=== PATIENT | female | born 1990 | race Caucasian/White ===

== ENCOUNTER 2017-03-21 21:57 | Outpatient (CLI) | payer MEDICAID ==
[~2017-03-21] VITALS: Ht 165.1 cm; Wt 61.5 kg
[~2017-03-21 21:57] MED LIST: ACHYD1T PO; BCP PO; CLC500CT PO; CPR500T PO; DCS100C PO; HYDR-3720 PO; HYDR1CAP2 PO; IBP800T PO; PREN1TAB19 PO; PREN1TAB39 PO
[2017-03-21 22:13] VITALS: BP 119/69
--- NOTE | 2017-03-22 13:02 | Physician Query-Final Dx ---
APARNA CEDILLO 03/22/17 1302: Clinic Account Progress/Dx Physician Query: Please give diagnosis Date of Service Mar 21, 2017 at 21:57 MAE READ MD 03/23/17 0717: Clinic Account Progress/Dx DIAGNOSIS: Diagnosis false labor APARNA CEDILLO Mar 22, 2017 13:02 MAE READ MD Mar 23, 2017 07:17
== END 2017-03-21 22:46 | disposition home or self-care (01) ==
LOC: LDRP 21:57 → WSo 21:57
PROVIDERS: ATTEND Obstetrics & Gynecology
DX: O47.02 False labor before 37 completed weeks of gestation, second trimester (principal); Z3A.23 23 weeks gestation of pregnancy
CPT/HCPCS: 99213

== ENCOUNTER 2017-06-10 16:01 | Outpatient (CLI) | payer MEDICAID ==
[~2017-06-10] VITALS: Ht 165.1 cm; Wt 69.2 kg
[2017-06-10 16:15] VITALS: BP 129/79
[2017-06-10 16:38] LABS: BILIRUBIN,URINE NEGATIVE (NEGATIVE); KETONES,URINE NEGATIVE (NEGATIVE); LEUKOCYTE ESTERASE ,URINE NEGATIVE (NEGATIVE); NITRITE,URINE NEGATIVE (NEGATIVE); PH,URINE 7 (5-9); PROTEIN,URINE NEGATIVE (NEGATIVE); UROBILINOGEN,URINE NORMAL (NORMAL)
[2017-06-10 16:49] LABS: SQUAMOUS EPITHELIAL CELL,UR 0-2 /HPF
--- NOTE | 2017-06-11 08:06 | Physician Query-Final Dx ---
NIKOLE RAZO 06/11/17 0806: Clinic Account Progress/Dx Physician Query: Please give diagnosis Date of Service Jun 10, 2017 at 16:01 MAE READ MD 06/14/17 0903: Clinic Account Progress/Dx DIAGNOSIS: Diagnosis false labor NIKOLE RAZO Jun 11, 2017 08:06 MAE READ MD Jun 14, 2017 09:03
== END 2017-06-10 17:50 | disposition home or self-care (01) ==
LOC: LDRP 16:01 → WSo 16:01
PROVIDERS: ATTEND Obstetrics & Gynecology
DX: O47.03 False labor before 37 completed weeks of gestation, third trimester (principal); Z3A.34 34 weeks gestation of pregnancy
CPT/HCPCS: 81000; 99214

== ENCOUNTER 2017-06-25 23:37 | Inpatient (IN) | payer MEDICAID ==
[~2017-06-25] VITALS: Ht 165.1 cm; Wt 70.8 kg
[2017-06-25 23:50] VITALS: BP 126/79
[2017-06-26] VITALS (34 sets, daily range): BP systolic 104–125; BP diastolic 54–81
[2017-06-26] MEDS: D5 LR IV SOLUTION 1,000 ML IV SCH ×2 (01:02→07:43)
[2017-06-26] MEDS ORDERED: D5 LR IV SOLUTION 1,000 ML IV SCH (02:08)
--- OUTSIDE RECORDS SUMMARY | 2017-06-26 02:16 | XMS REPORT ---
Author ABEL Cruz [facility] [place] eClinicalWorks Address Unknown Phone Unavailable Care Team Providers Care Patient Services Assistant Name Role Phone ABEL CHOWDHURY CP Unavailable Allergies No Known Allergies Problems Problem Type Condition ICD-9 Code Onset Dates Condition Status Assessment Screening for tuberculosis V74.1 Active Medications No Known Medications Procedures Procedure Coding System Code Date TB INTRADERMAL TEST CPT-4 30551 Jun 07, 2015 Results No Known Results Summary Purpose eClinicalWorks Submission
[2017-06-26 02:19] LABS: BASOPHILS % (AUTO) 0 % (0-10); EOSINOPHILS # (AUTO) 0.1 10^3/uL (0.0-0.3); EOSINOPHILS % (AUTO) 2 % (0-10); LYMPHOCYTES # (AUTO) 2.2 X 10^3 (1.0-4.0); LYMPHOCYTES % (AUTO) 24 % (12-44); MEAN CORPUSCULAR HEMOGLOBIN 28 PG (25-34); MEAN CORPUSCULAR HGB CONC 34 G/DL (32-36); MEAN CORPUSCULAR VOLUME 83 FL (80-99); MEAN PLATELET VOLUME 10.3 FL (7.4-10.4); MONOCYTES # (AUTO) 0.7 X 10^3 (0.0-1.0); MONOCYTES % (AUTO) 7 % (0-12); NEUTROPHILS # (AUTO) 6.2 X 10^3 (1.8-7.8); NEUTROPHILS % (AUTO) 67 % (42-75); PLATELET COUNT 166 10^3/uL (130-400); RED BLOOD COUNT 4.02 10^6/uL (4.35-5.85); WHITE BLOOD COUNT 9.3 10^3/uL (4.3-11.0)
[2017-06-26] MEDS ORDERED: LACTATED RINGERS 1,000 ML IV ONE (04:15)
[2017-06-26] MEDS ORDERED: OXYTOCIN/NORMAL SALINE 500 ML IV SCH ×2 (04:17→06:51)
[2017-06-26] MEDS ORDERED: SUFENTA 0.6MCG/ML BUPIVA 0.125 100 ML ONE (04:20)
[2017-06-26] MEDS ORDERED: BUPIVACAINE 0.25% 30 ML (SENSORCAINE) VIAL ONE (05:37)
[2017-06-26] MEDS ORDERED: fentaNYL INJECTION 100 MCG/2 ML AMP ONE (05:37)
[2017-06-26] MEDS ORDERED: LACTATED RINGERS 1,000 ML IV SCH (06:17)
[2017-06-26] MEDS ORDERED: diphenhydrAMINE 50 MG/ML INJ (BENADRYL) IV PRN (06:30)
[2017-06-26] MEDS ORDERED: METOCLOPRAMIDE INJ 10 MG/2 ML (REGLAN) IV PRN (06:30)
[2017-06-26] MEDS ORDERED: EPIDURAL (SUFENTA 0.6MCG/ML BUPIVA 0.125%) 100 ML BAG EPI PRN (06:30)
[2017-06-26] MEDS ORDERED: NALOXONE 0.4 MG/ML 1 ML (NARCAN) VIAL IV PRN ×2 (06:30)
[2017-06-26] MEDS ORDERED: ONDANSETRON 4 MG/2 ML (SDV) Z0FRAN IV PRN (06:30)
--- NOTE | 2017-06-26 06:50 | History & Physical ---
History and Physical Date Seen by Provider: Jun 26, 2017 Time Seen by Provider: 06:48 this patient is a 26-year-old white female with a due date of 07-16-17 who presented in labor. she denied rupture membranes or bleeding. She was found to be marcelino regularly and demonstrating cervical change. Her GBS culture after 35 weeks gestation was negative. She has had no problems with this . Allergies are none Medications are vitamins Past medical history, past surgical history, obstetric history, family history, social histories are per the antepartum record HEENT exam is normal Neck is supple no lymphadenopathy no thyromegaly Abdomen is gravid soft nontender nondistended Streaming show clubbing cyanosis. There is no Homans sign. Pelvic exam shows a cervix 5-6 cm dilated 70 percent effaced -1 station vertex presentation with intact membranes. Amniotomy is performed releasing clear fluid. monitor shows contractions every 2-3 minutes with a normal heart rate pattern Laboratory Tests 06/26/17 01:00 assessment and plan term at 37 weeks gestation admitted in labor. Anticipation is for vaginal delivery. term in active labor at 37 weeks gestation Allergies and Home Medications Allergies Coded Allergies: No Known Drug Allergies (Unverified , 03/23/11) Home Medications Vit/Fe Fumarate/Fa 1 Each Tablet, 1 EACH PO DAILY, (Reported) Clinical Quality Measures DVT/VTE Risk/Contraindication: Risk Factor Score Per Nursin RFS Level Per Nursing on Admit: 1=Low/No VTE PPX MAE READ MD Jun 26, 2017 6:50 am
[2017-06-26] MEDS ORDERED: BENZOCAINE/MENTHOL (DERMOPLAST) 56 ML CAN TP PRN (07:00)
[2017-06-26] MEDS ORDERED: TETANUS,DIPTH,PERTUSS P/F (BOOSTRIX) 0.5 ML VIAL IM ONE (07:00)
[2017-06-26] MEDS ORDERED: oxyCODONE/APAP 10/325MG (PERCOCET 10) TABLET PO PRN (07:00)
[2017-06-26] MEDS ORDERED: KETOROLAC 30 MG/ML VIAL IV SCH (07:00)
[2017-06-26] MEDS ORDERED: LIDOCAINE/EPI 2% 1:200,00 (XYLOCAINE) 10 ML VIAL ONE (07:35)
--- NOTE | 2017-06-26 08:27 | OPERATIVE REPORT ---
DATE OF SERVICE: 06/26/2017 The patient delivered by term spontaneous vaginal delivery a viable male with Apgars of 8 and 9 at 1 and 5 minutes respectively. time of 0802. Weight is 6# 15oz. the heart rate tracing had been normal and reassuring throughout the labor. During the final few minutes of pushing the heart rate was persistently dropping under 100 beats per minute but recovering adequately between contractions. The umbilical cord arterial blood had a pH of 7.18. The patient delivered over an intact perineum under epidural analgesia. The infant was bulb suctioned on delivery of the head and a single nuchal cord was easily released and delivery completed. The umbilical cord was doubly clamped, father cut the cord and the baby was passed to mom. Placenta delivered spontaneous Schultze. It was normal with a 3-vessel cord. Cervix, vagina, rectum, perineum were examined and found intact except for some very minimal superficial abrasions in the periurethral areas bilaterally. They were hemostatic and no repair was required. Estimated blood loss for delivery was around 50 mL. The patient tolerated the delivery well and remained in the LDR for recovery. The baby remained with the mom. sponge and needle counts were correct Job ID: [id number] DocumentID: [id number] Dictated Date: 06/26/2017 08:11:13 Cigarette Seller Date: 06/26/2017 08:26:06 Dictated By: MAE READ MD [facility]
[2017-06-26] MEDS: DOCUSATE SODIUM 100 MG (COLACE) CAP PO SCH ×2 (11:48→20:51)
[2017-06-26] MEDS: CATHETER FLUSH 10 ML SYR IV SCH ×2 (11:49→23:55)
[2017-06-26] MEDS: IBUPROFEN 800 MG (MOTRIN) TAB PO SCH ×2 (13:59→20:51)
[2017-06-27 00:20] VITALS: BP 118/74
[2017-06-27 03:54] VITALS: BP 105/63
[2017-06-27] MEDS: IBUPROFEN 800 MG (MOTRIN) TAB PO SCH ×4 (03:54→21:02)
[2017-06-27 06:33] LABS: BASOPHILS % (AUTO) 0 % (0-10); EOSINOPHILS # (AUTO) 0.3 10^3/uL (0.0-0.3); EOSINOPHILS % (AUTO) 3 % (0-10); LYMPHOCYTES # (AUTO) 2.4 X 10^3 (1.0-4.0); LYMPHOCYTES % (AUTO) 24 % (12-44); MEAN CORPUSCULAR HEMOGLOBIN 29 PG (25-34); MEAN CORPUSCULAR HGB CONC 34 G/DL (32-36); MEAN CORPUSCULAR VOLUME 84 FL (80-99); MEAN PLATELET VOLUME 10.5 FL (7.4-10.4); MONOCYTES # (AUTO) 0.7 X 10^3 (0.0-1.0); MONOCYTES % (AUTO) 7 % (0-12); NEUTROPHILS # (AUTO) 6.7 X 10^3 (1.8-7.8); NEUTROPHILS % (AUTO) 66 % (42-75); PLATELET COUNT 171 10^3/uL (130-400); RED BLOOD COUNT 4.06 10^6/uL (4.35-5.85); RED CELL DISTRIBUTION WIDTH 13.1 % (10.0-14.5); WHITE BLOOD COUNT 10.1 10^3/uL (4.3-11.0)
--- NOTE | 2017-06-27 07:44 | Progress Note-Standard ---
Standard Progress Note Progress Notes/Assess & Plan Date Seen by Provider: Jun 27, 2017 Time Seen by Provider: 07:43 Progress/Assessment & Plan this patient is without complaint. She is ambulating, voiding, tolerating by mouth well, has good pain control. Patient denies chest pain, denies shortness of breath, denies nausea vomiting, denies headache. Vital Signs Date Time Temp Pulse Resp B/P (MAP) Pulse Ox O2 Delivery O2 Flow Rate FiO2 06/27/17 03:54 98.0 76 18 105/63 98 Room Air 06/27/17 00:20 98.0 72 18 118/74 97 Room Air 06/26/17 20:51 98.1 66 18 104/61 97 Room Air 06/26/17 17:05 98.1 64 18 120/70 98 06/26/17 12:15 74 18 119/77 99 Room Air 06/26/17 11:00 98.9 72 18 116/71 Room Air 06/26/17 09:45 98.6 71 18 118/73 Room Air 06/26/17 09:15 79 18 119/77 Room Air 06/26/17 09:00 87 18 117/76 Room Air 06/26/17 08:45 71 18 116/64 Room Air 06/26/17 08:30 75 18 109/61 Room Air 06/26/17 08:02 87 99 Room Air 06/26/17 07:45 71 124/54 100 Room Air vital signs are stable. Patient afebrile. Fundus is firm below the umbilicus nontender. Extremities show no clubbing cyanosis. There is no Homans sign. Assessment and plan day number 1 doing well. Plan is for routine care and allow for discharge home at patient request Final Diagnosis 37 week spontaneous vaginal delivery MAE READ MD Jun 27, 2017 7:44 am
[2017-06-27] MEDS ORDERED: DOCU100C37 PO (07:45)
[2017-06-27] MEDS ORDERED: IBUP-1780 PO (07:45)
[2017-06-27] MEDS ORDERED: OXYC-465 PO (07:45)
--- NOTE | 2017-06-27 07:47 | Discharge Instructions ---
Discharge Instructions Discharge Medications New, Converted or Re-Newed RX: RX on Chart Patient Instructions Patient Instructions: as directed Return to The Hospital For: as directed Activity & Diet Discharge Diet: No Restrictions Activity as Tolerated: No Orders-Post D/C & Referrals Follow Up Appt: Call to make follow up appt. for patient in 4 weeks. Activity Per routine post vaginal delivery instructions. Please call in RX to patient pharmacy. Diet as tolerated Patient may shower or tub bathe as desired. MAE READ MD Jun 27, 2017 7:47 am
[2017-06-27] MEDS: DOCUSATE SODIUM 100 MG (COLACE) CAP PO SCH (08:54)
[2017-06-27 09:00] VITALS: BP 118/77
[2017-06-27 11:00] VITALS: BP 116/83
--- NOTE | 2017-06-27 11:39 | Anesthesia-Regional Post-Op ---
Regional Patient Condition Mental Status: Alert, Oriented x3 Circulation: Same as Pre-Op Headache: Absent Sensation: Full Recovery Motor Block: Absent Post Op Complications Complications None Follow Up Care/Instructions Patient Instructions None needed. Anesthesia/Patient Condition Patient is doing well, no complaints, stable vital signs, no apparent adverse anesthesia problems. No complications reported per nursing. TERRANCE ROMERO CRNA Jun 27, 2017 11:39
[2017-06-27 15:19] VITALS: BP 113/75
[2017-06-27 21:10] VITALS: BP 111/78
[2017-06-28 03:20] VITALS: BP 115/74
[2017-06-28] MEDS: IBUPROFEN 800 MG (MOTRIN) TAB PO SCH ×2 (03:20→09:27)
--- NOTE | 2017-06-28 07:49 | Progress Note-Standard ---
Standard Progress Note Progress Notes/Assess & Plan Date Seen by Provider: Jun 28, 2017 Time Seen by Provider: 07:48 Progress/Assessment & Plan this patient is without complaint. She is ambulating, voiding, tolerating by mouth well, has good pain control. Patient denies chest pain, denies shortness of breath, denies nausea vomiting, denies headache. Vital Signs Date Time Temp Pulse Resp B/P (MAP) Pulse Ox O2 Delivery O2 Flow Rate FiO2 06/27/17 03:54 98.0 76 18 105/63 98 Room Air 06/27/17 00:20 98.0 72 18 118/74 97 Room Air 06/26/17 20:51 98.1 66 18 104/61 97 Room Air 06/26/17 17:05 98.1 64 18 120/70 98 06/26/17 12:15 74 18 119/77 99 Room Air 06/26/17 11:00 98.9 72 18 116/71 Room Air 06/26/17 09:45 98.6 71 18 118/73 Room Air 06/26/17 09:15 79 18 119/77 Room Air 06/26/17 09:00 87 18 117/76 Room Air 06/26/17 08:45 71 18 116/64 Room Air 06/26/17 08:30 75 18 109/61 Room Air 06/26/17 08:02 87 99 Room Air 06/26/17 07:45 71 124/54 100 Room Air vital signs are stable. Patient afebrile. Fundus is firm below the umbilicus nontender. Extremities show no clubbing cyanosis. There is no Homans sign. Assessment and plan day number 1 doing well. Plan is for routine care and allow for discharge home at patient request June 28, 2017 Patient is without complaint. She is ambulating, voiding, tolerating by mouth well, has good pain control, and is requesting discharge home. Vital Signs Date Time Temp Pulse Resp B/P (MAP) Pulse Ox O2 Delivery O2 Flow Rate FiO2 06/28/17 03:20 98.4 59 18 115/74 100 Room Air 06/27/17 21:10 98.8 72 18 111/78 100 Room Air 06/27/17 15:19 97.8 64 18 113/75 100 Room Air 06/27/17 11:00 97.6 69 18 116/83 98 Room Air 06/27/17 09:00 98.2 76 18 118/77 99 Room Air vital signs are stable. Patient is afebrile. Fundus is firm below the umbilicus and nontender. Extremities show no clubbing cyanosis. There is no Homans sign. Assessment and plan day number 2 status post term spontaneous vaginal delivery at 37 weeks gestation. Patient is doing well and will be discharged home today Final Diagnosis 37 week spontaneous vaginal delivery MAE READ MD Jun 28, 2017 7:49 am
[2017-06-28 09:14] VITALS: BP 115/78
[2017-06-28] MEDS: DOCUSATE SODIUM 100 MG (COLACE) CAP PO SCH (09:27)
[2017-06-28 12:00] VITALS: BP 117/75
== END 2017-06-28 12:45 | disposition home or self-care (01) | DRG 775 ==
LOC: WSo 23:37 → LDRP 23:39 → WSo 06-26 01:58 → LDRP 06-26 09:50
PROVIDERS: ADMIT Obstetrics & Gynecology; ATTEND Obstetrics & Gynecology
PROC: 10E0XZZ Delivery of Products of Conception, External Approach (ICD-10-PCS; principal; 2017-06-26)
DX: O80 Encounter for full-term uncomplicated delivery (principal); Z3A.37 37 weeks gestation of pregnancy; Z37.0 Single live birth
CPT/HCPCS: 36415; 85025; 86850; 86900; 86901